=== PATIENT | male | born 1960 | race Caucasian/White ===

== ENCOUNTER 2017-08-22 13:04 | Emergency (ER) | payer OTHER, BC ==
[~2017-08-22] VITALS: Ht 193 cm; Wt 78.0 kg
[~2017-08-22 13:04] MED LIST: APAP/CODEINE ELI5 M1 OR; CLONAZEPAM 1 MG1 M1 PO; ERIVEDGE150 MG PO; LEVAQUIN 500 M500 MG PO; NASONEX17 GM NASAL; VENTOLIN HFA 1818 GM INH; ZOCOR20 MG PO
[2017-08-22 15:58] VITALS: BP 120/78
[2018-04-02] MEDS ORDERED: CLONAZEPAM 1 MG1 M1 PO (03:30)
[2018-04-02] MEDS ORDERED: ERIVEDGE150 MG PO (03:34)
== END 2017-08-22 15:59 ==
LOC: ER 13:04
DX: S01.01XA Laceration without foreign body of scalp, initial encounter (principal); E78.00 Pure hypercholesterolemia, unspecified; F17.210 Nicotine dependence, cigarettes, uncomplicated; Z85.828 Personal history of other malignant neoplasm of skin; W22.01XA Walked into wall, initial encounter; Y93.01 Activity, walking, marching and hiking; Y92.89 Other specified places as the place of occurrence of the external cause; Y99.8 Other external cause status

== ENCOUNTER 2017-09-03 15:24 | Emergency (ER) | payer BC, OTHER ==
[~2017-09-03] VITALS: Ht 193 cm; Wt 77.1 kg
[2017-09-03 15:37] VITALS: BP 117/73
[2018-04-02] MEDS ORDERED: CLONAZEPAM 1 MG1 M1 PO (03:30)
[2018-04-02] MEDS ORDERED: ERIVEDGE150 MG PO (03:34)
== END 2017-09-03 15:35 | disposition home or self-care (01) ==
LOC: ER 15:24
DX: S01.01XD Laceration without foreign body of scalp, subsequent encounter (principal); E78.00 Pure hypercholesterolemia, unspecified; F17.210 Nicotine dependence, cigarettes, uncomplicated; Z85.828 Personal history of other malignant neoplasm of skin; X58.XXXD Exposure to other specified factors, subsequent encounter

== ENCOUNTER 2018-01-30 11:22 | Emergency (ER) | payer BC, OTHER ==
[~2018-01-30] VITALS: Ht 193 cm; Wt 75.8 kg
[2018-01-30 11:46] LABS: URINE BLOOD 3+ (Negative); URINE CLARITY CLEAR; URINE COLOR YELLOW; URINE GLUCOSE-RANDOM* NEGATIVE (Negative); URINE KETONES NEGATIVE (Negative); URINE LEUKOCYTES-REFLEX NEGATIVE (Negative); URINE NITRITE-REFLEX NEGATIVE (Negative); URINE PROTEIN (DIPSTICK) TRACE (Negative); URINE SPECIFIC GRAVITY >= 1.030 (1.005-1.035); URINE UROBILINOGEN 0.2 E.U./dl (0.2-1.0)
[2018-01-30 11:50] LABS: ICTOTEST (BILI CONFIRMATORY) Negative (Negative); URINE BILIRUBIN NEGATIVE (Negative)
[2018-01-30 12:00] LABS: ABSOLUTE NEUTROPHILS 6.8 thou/uL (1.4-8.2); BASOPHILS 0.4 % (0.0-2.0); EOSINOPHILS 0.2 % (0.0-3.0); HEMATOCRIT 39.1 % (42.0-52.0); HEMOGLOBIN 13.9 gm/dL (14.0-18.0); LYMPHOCYTES 13.4 % (24.0-44.0); MCH 30.9 pg (26.0-34.0); MCHC 35.6 g/dL (28.0-37.0); MCV 86.7 fL (80.0-100.0); MONOCYTES 5.7 % (1.0-8.0); PLATELET COUNT 239 thou/uL (150-400); POLYS 80.3 % (36.0-66.0); RDW 13.4 % (10.5-14.5); WBC 8.4 thou/uL (4.0-11.0)
[2018-01-30 12:06] LABS: BACTERIA-REFLEX 1-9 Few /HPF (None Seen); CASTS None Seen /LPF (None Seen); CRYSTALS None Seen /LPF (None Seen); SQUAMOUS 0-3 Few /LPF (0-3); URINE RBC >20 Many /HPF (0-2); URINE WBC-REFLEX 0-5 Rare /HPF (0-5)
[2018-01-30 12:06] LABS: CALCIUM 9.2 mg/dL (8.5-10.1); POTASSIUM 4.2 mmol/L (3.5-5.1)
[2018-01-30] MEDS ORDERED: NORCO 5-325 TA1 EACH PO (13:23)
[2018-01-30] MEDS ORDERED: ONDANSETRON HCL4 M2 PO (13:23)
[2018-01-30] MEDS ORDERED: FLOMAX0.4 MG PO (13:23)
[2018-01-30 13:32] VITALS: BP 112/66
== END 2018-01-30 13:34 | disposition home or self-care (01) ==
LOC: ER 11:22
PROVIDERS: Nurse Practitioner Family
DX: N20.0 Calculus of kidney (principal); E78.00 Pure hypercholesterolemia, unspecified; F17.210 Nicotine dependence, cigarettes, uncomplicated; Z85.828 Personal history of other malignant neoplasm of skin